=== PATIENT | male | born 1980 | race Caucasian/White ===

== ENCOUNTER 2017-12-17 10:21 | Emergency (ER) | payer OTHER ==
[~2017-12-17] VITALS: Ht 182.9 cm; Wt 113.6 kg
[2017-12-17 10:29] VITALS: BP 121/78; PULSE 67; TEMP 98.1
== END 2017-12-17 12:09 | disposition home or self-care (01) ==
LOC: COL.ER 10:21
DX: S90.212A Contusion of left great toe with damage to nail, initial encounter (principal); W23.0XXA Caught, crushed, jammed, or pinched between moving objects, initial encounter